=== PATIENT | female | born 1970 | race African-American/Black ===

== ENCOUNTER 2016-11-14 17:25 | Emergency (ER) | payer OTHER ==
[~2016-11-14] VITALS: Ht 152.4 cm; Wt 54.4 kg
--- NOTE | ~2016-11-14 | EKG ---
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
[2016-11-14] MEDS ORDERED: TYLENOL PM EX-1 EACH PO (17:48)
[2016-11-14 18:21] LABS: ABSOLUTE NEUTROPHILS 4.4 thou/uL (1.4-8.2); BASOPHILS 1.1 % (0.0-2.0); EOSINOPHILS 1.2 % (0.0-3.0); HEMATOCRIT 38.8 % (37.0-47.0); HEMOGLOBIN 13.3 gm/dL (12.0-15.0); LYMPHOCYTES 26.9 % (24.0-44.0); MCH 31.7 pg (26.0-34.0); MCHC 34.2 g/dL (28.0-37.0); MCV 92.7 fL (80.0-100.0); MONOCYTES 7.7 % (1.0-8.0); PLATELET COUNT 254 thou/uL (150-400); POLYS 63.1 % (36.0-66.0); RBC 4.19 mil/uL (4.20-5.00); RDW 13.3 % (10.5-14.5)
[2016-11-14 18:22] LABS: MANUAL DIFF NO
[2016-11-14 18:27] LABS: CALCIUM 9.1 mg/dL (8.5-10.1); CREATININE 0.9 mg/dL (0.6-1.0); POTASSIUM 3.8 mmol/L (3.5-5.1)
[2016-11-14 18:33] LABS: ALBUMIN 3.9 g/dL (3.4-5.0); TOTAL BILIRUBIN 0.3 mg/dL (<0.1-1.0); TOTAL PROTEIN 7.6 g/dL (6.4-8.2)
[2016-11-14 20:03] VITALS: BP 96/63
== END 2016-11-14 20:03 | disposition home or self-care (01) ==
LOC: ER 17:25
PROVIDERS: Emergency Medicine
DX: R51 Headache (principal); R42 Dizziness and giddiness; F17.210 Nicotine dependence, cigarettes, uncomplicated

== ENCOUNTER 2017-01-08 21:48 | Emergency (ER) | payer OTHER ==
[~2017-01-08] VITALS: Ht 154.9 cm; Wt 56.7 kg
[~2017-01-08 21:48] MED LIST: TYLENOL PM EX-1 EACH PO
[2017-01-09 00:23] VITALS: BP 126/80
== END 2017-01-09 00:24 | disposition home or self-care (01) ==
LOC: ER 21:48
DX: H61.22 Impacted cerumen, left ear (principal); F17.210 Nicotine dependence, cigarettes, uncomplicated

== ENCOUNTER 2017-05-24 14:33 | Emergency (ER) | payer OTHER ==
[~2017-05-24] VITALS: Ht 157.5 cm; Wt 59.0 kg
--- NOTE | ~2017-05-24 | EKG ---
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 : 1970 Requested By: Jessica Cosby Order Number: [id number] MD: Christian Norwood Measurements Intervals [place] Rate: 68 P: 76 WI: 127 QRS: 50 QRSD: 168 T: 37 QT: 394 QTc: 420 Interpretive Statements Sinus rhythm No significant abnormality Compared to ECG 11/14/2016 17:44:39 No significant change was found Electronically Signed On 05-24-2017 17:22:24 DIRECTOR OF VALUATION by Christian Norwood [email or web address] <ELECTRONICALLY SIGNED> By: Christian Norwood MD, [facility] 05/24/17 1722 1459 1459 Christian Norwood MD, FACC /EPI
[2017-05-24 15:35] LABS: BASOPHILS 1.4 % (0.0-2.0); EOSINOPHILS 1.4 % (0.0-3.0); HEMATOCRIT 39.1 % (37.0-47.0); HEMOGLOBIN 13.1 gm/dL (12.0-15.0); LYMPHOCYTES 27.5 % (24.0-44.0); MCH 31.3 pg (26.0-34.0); MCHC 33.5 g/dL (28.0-37.0); MCV 93.2 fL (80.0-100.0); MONOCYTES 6.5 % (1.0-8.0); PLATELET COUNT 229 thou/uL (150-400); POLYS 63.2 % (36.0-66.0); RDW 13.9 % (10.5-14.5); WBC 4.7 thou/uL (4.0-11.0)
[2017-05-24 15:43] LABS: ANION GAP 6 mmol/L (7-16); BUN 11 mg/dL (7-18); CALCIUM 8.8 mg/dL (8.5-10.1); CHLORIDE 107 mmol/L (98-107); CO2 29 mmol/L (21-32); CREATININE 0.8 mg/dL (0.6-1.0); GLUCOSE 81 mg/dL (74-106); POTASSIUM 4.2 mmol/L (3.5-5.1); SODIUM 142 mmol/L (136-145)
[2017-05-24 15:51] LABS: TROPONIN-I < 0.04 ng/mL (<0.06)
[2017-05-24] MEDS ORDERED: NORCO 5-325 TA1 EACH PO (16:28)
== END 2017-05-24 16:40 | disposition home or self-care (01) ==
LOC: ER 14:33
PROVIDERS: Emergency Medicine
DX: R09.1 Pleurisy (principal); M54.9 Dorsalgia, unspecified; Z87.891 Personal history of nicotine dependence